=== PATIENT | male | born 1945 | race Two or more races ===

== ENCOUNTER 2020-10-11 19:17 | Emergency (ER) | payer MEDICARE, OTHER ==
[~2020-10-11] VITALS: Ht 177.8 cm; Wt 72.6 kg
--- NOTE | 2020-10-11 19:22 | NUR ---
PT BIBRA C/O LEFT COLLAR BONE PAIN S/P TRIP AND FALL. PT AAOX3 BREATHING EVENLY AND UNLABORED. PT STATES " I TRIPPED OVER MY FEET AND FELL" PT ADMITS TO DRINKING. PT ATTACHED TO MONITOR AND POX. PT GIVEN BLANKET AND CALL LIGHT WITHIN REACH
--- NOTE | 2020-10-11 19:41 | NUR ---
PT ELOPED FROM FACILITY. PT REFUSED TO BE SEEN OR SIGN AMA FORM
[2020-10-11 19:42] VITALS: BP 106/74
== END 2020-10-11 19:40 | disposition left against medical advice (07) ==
LOC: ER 19:20
DX: S49.82XA Other specified injuries of left shoulder and upper arm, initial encounter (principal); F10.129 Alcohol abuse with intoxication, unspecified; V19.88XA Pedal cyclist (driver) (passenger) injured in other specified transport accidents, initial encounter; Y93.89 Activity, other specified; Y92.89 Other specified places as the place of occurrence of the external cause; Y99.8 Other external cause status; Y90.9 Presence of alcohol in blood, level not specified